=== PATIENT | female | born 1985 | race Two or more races ===

== ENCOUNTER 2023-05-15 09:03 | Day surgery (SDC) | payer OTHER | END 2023-05-15 13:35 | disposition home or self-care (01) | LOC: AMB-ENDOS 09:03 | PROVIDERS: ATTEND Colon & Rectal Surgery | DX: K57.32 Diverticulitis of large intestine without perforation or abscess without bleeding (principal); Z93.2 Ileostomy status; R19.4 Change in bowel habit; Z20.822 Contact with and (suspected) exposure to COVID-19 ==

== ENCOUNTER 2023-06-06 12:02 | Inpatient (IN) | payer OTHER ==
[~2023-06-06] VITALS: Ht 165.1 cm; Wt 0.5 kg
== END 2023-06-14 14:50 | disposition home or self-care (01) | DRG 330 ==
LOC: SURH 06-09 05:20 → O/R 06-09 05:20 → SURG 06-09 07:00 → SURH 06-09 13:17
PROVIDERS: ADMIT Colon & Rectal Surgery; ATTEND Colon & Rectal Surgery
PROC: 0DBB4ZZ Excision of Ileum, Percutaneous Endoscopic Approach (ICD-10-PCS; 2023-06-09)
PROC: 0WQF4ZZ Repair Abdominal Wall, Percutaneous Endoscopic Approach (ICD-10-PCS; 2023-06-09)
PROC: 3E0F7SF Introduction of Other Gas into Respiratory Tract, Via Natural or Artificial Opening (ICD-10-PCS; 2023-06-09)
PROC: 0DN84ZZ Release Small Intestine, Percutaneous Endoscopic Approach (ICD-10-PCS; 2023-06-09)
PROC: 0DB84ZZ Excision of Small Intestine, Percutaneous Endoscopic Approach (ICD-10-PCS; principal; 2023-06-09 07:00)
DX: Z43.2 Encounter for attention to ileostomy (principal); K56.51 Intestinal adhesions [bands], with partial obstruction; T81.49XA Infection following a procedure, other surgical site, initial encounter; K43.5 Parastomal hernia without obstruction or gangrene; B95.2 Enterococcus as the cause of diseases classified elsewhere; B96.89 Other specified bacterial agents as the cause of diseases classified elsewhere

== ENCOUNTER 2023-06-07 08:35 | Outpatient (CLI) | payer OTHER | END 2023-06-07 08:39 | disposition home or self-care (01) | LOC: RX STUDY 08:35 | PROVIDERS: ATTEND Colon & Rectal Surgery | DX: K63.89 Other specified diseases of intestine (principal); Z93.2 Ileostomy status ==

== ENCOUNTER 2024-05-02 00:10 | Emergency (ER) | payer OTHER ==
[~2024-05-02] VITALS: Ht 154.9 cm; Wt 74.8 kg
[2024-05-02] MEDS ORDERED: MEPERIDINE HCL/PF 50 MG/ML VIAL IM STA (01:53)
[2024-05-02] MEDS ORDERED: PROMETHAZINE HCL 50 MG/ML AMPUL IM STA (01:54)
[2024-05-02] MEDS ORDERED: [UNRECOGNIZED DRUG - OTHER] IV STA (01:57)
[2024-05-02] MEDS ORDERED: 0.9 % SODIUM CHLORIDE 1,000 ML IV ONE (02:00)
[2024-05-02] MEDS ORDERED: PROMETHAZINE HCL 50 MG/ML AMPUL IM ONE (02:02)
[2024-05-02 02:58] LABS: HEMATOCRIT 34.6 % (36.0-45.00); HEMOGLOBIN 11.7 g/dL (12.0-15.00); MEAN CELL VOLUME 90.5 fL (80.00-100.00); MEAN CORPUSCULAR HEMOGLOBIN 30.6 pg (27.00-32.0); MEAN CORPUSCULAR HGB CONC 33.8 g/dl (32.0-36.0); PLATELET COUNT 351 K/uL (150-450); RED BLOOD COUNT 3.83 M/uL (4.00-6.00); RED CELL DISTRIBUTION WIDTH 13.6 % (11.5-14.5)
[2024-05-02 03:16] LABS: INR < 0.93; PARTIAL THROMBOPLASTIN TIME 28.2 SECONDS (22.0-34.0); PROTHROMBIN TIME 9.8 SECONDS (9.0-11.5)
[2024-05-02 03:37] LABS: ALBUMIN 3.3 gm/dL (3.4-5.0); ALKALINE PHOSPHATASE 69 U/L (50-136); ALT/SGPT 15 U/L (12-78); AMYLASE 40 U/L (25-115); ANION GAP 11 (10.0-20.0); AST/SGOT 14 U/L (15-37); BILIRUBIN TOTAL 0.21 mg/dL (0.3-1.2); BILIRUBIN,CONJUGATED < 0.10 mg/dL (0.0-0.2); BILIRUBIN,UNCONJUGATED 0.11 mg/dL (0.0-0.6); BLOOD UREA NITROGEN 7 mg/dL (7-18); BUN CREA RATIO 14 (7.0-25.0); CALCIUM 8.3 mg/dL (8.5-10.1); CARBON DIOXIDE 27 mEq/L (21-32); CHLORIDE 110 mmol/L (98-107); CREATININE SERUM 0.51 mg/dL (0.55-1.02); GFR 134.25; GLOBULINA 3.3 G/DL (2.4-3.5); GLUCOSE FASTING 86 mg/dL (65-100); LIPASE 36 U/L (13-75); OSMOLALITY SERUM 284 MOSM/KG (275-295); POTASSIUM 4.17 mEq/L (3.5-5.1); SODIUM 144 mmol/L (136-145); TOTAL PROTEIN 6.6 gm/dL (6.4-8.2)
[2024-05-02 04:04] LABS: HCG QUANTITATIVE < 1 mUI/mL (1-3)
[2024-05-02 05:10] LABS: PH,URINE 7.5 (5.0-8.0); URINE APPEARANCE Cloudy; URINE BILIRRUBIN Negative (NEGATIVE); URINE BLOOD Negative; URINE COLOR Yellow; URINE GLUCOSE Negative (NEGATIVE); URINE LEUKOCYTE Trace; URINE NITRATE Negative; URINE PROTEIN Negative (NEGATIVE); URINE UROBILINOGEN 0.2 E.U./dl
[2024-05-02 05:14] LABS: URINE BACTERIA 4821.9 uL (0.0-1933); URINE CAST 0.61 uL (0.0-1.40); URINE EPITHELIAL CELLS 53.7 uL (0.0-38.8); URINE KETONE 80 (NEGATIVE); URINE RBC 11.6 uL (0.0-20.8)
== END 2024-05-02 09:26 | disposition home or self-care (01) ==
LOC: ER 00:11
PROVIDERS: General Practice
DX: N39.0 Urinary tract infection, site not specified (principal); R10.2 Pelvic and perineal pain